=== PATIENT | male | born 1970 | race Caucasian/White ===

== ENCOUNTER 2016-12-19 21:29 | Inpatient (IN) | payer MEDICAID, OTHER ==
[~2016-12-19] VITALS: Ht 193 cm; Wt 88.0 kg
[2016-12-19] MEDS ORDERED: FINA5TAB41 PO (22:09)
[2016-12-19] MEDS ORDERED: ESTR2TAB PO (22:09)
[2016-12-19] MEDS ORDERED: CITA20TA9 PO (22:09)
[2016-12-19] MEDS ORDERED: ACYC200C PO (22:09)
[2016-12-19] MEDS ORDERED: TRAZ-147 PO (22:09)
[2016-12-19] MEDS ORDERED: SPIR50 PO (22:09)
[2016-12-19] MEDS ORDERED: LORazepam 2 MG TABLET PO PRN ×2 (23:00→23:45)
[2016-12-19] MEDS ORDERED: HALOPERIDOL 5 MG TABLET PO PRN ×2 (23:00→23:45)
[2016-12-19] MEDS ORDERED: ZOLPIDEM TARTRATE 10 MG TABLET PO PRN ×2 (23:00→23:45)
[2016-12-19] MEDS ORDERED: MEDR5TAB PO (23:19)
[2016-12-19] MEDS ORDERED: MELA10TA3 PO (23:19)
[2016-12-19] MEDS ORDERED: CALC-51 PO (23:19)
[2016-12-20 09:30] VITALS: BP 118/78
[2016-12-20] MEDS ORDERED: CITALOPRAM HYDROBROMIDE 20 MG TABLET PO ONE (12:45)
[2016-12-20 18:00] VITALS: BP 115/76
[2016-12-20] MEDS: TraZODone HCL 100 MG TABLET PO SCH (20:20)
[2016-12-21] MEDS ORDERED: MAGNESIUM HYDROXIDE SUSPENSION 30 ML UDCUP PO PRN (08:30)
[2016-12-21] MEDS ORDERED: IBUPROFEN 600 MG TABLET PO PRN (08:30)
[2016-12-21] MEDS ORDERED: ONDANSETRON HCL 4 MG TABLET PO PRN (08:30)
[2016-12-21] MEDS ORDERED: ALBUTEROL SULFATE HFA 90 MCG/PUFF 8 GM INHALER IH PRN (08:30)
[2016-12-21] MEDS ORDERED: CloNIDine HCL 0.1 MG TABLET PO PRN (08:30)
[2016-12-21] MEDS ORDERED: BACITRACIN 28.4 GM OINTMENT TP PRN (08:30)
[2016-12-21] MEDS ORDERED: PETROLATUM,WHITE 71 GM JELLY TP PRN (08:30)
[2016-12-21] MEDS ORDERED: LOPERAMIDE HCL 2 MG CAPSULE PO PRN (08:30)
[2016-12-21] MEDS ORDERED: MAG HYDROX/AL HYDROX/SIMETH ES 30 ML SUSPENSION UDCUP PO PRN (08:30)
[2016-12-21] MEDS ORDERED: ACETAMINOPHEN 325 MG TABLET PO PRN (08:30)
[2016-12-21] MEDS ORDERED: BENZOCAINE/MENTHOL LOZENGE [8 LOZENGES/PACKET] MM PRN (08:30)
[2016-12-21] MEDS: SPIRONOLACTONE 50 MG TABLET PO SCH ×2 (09:00→09:38)
[2016-12-21] MEDS: ESTRADIOL 1 MG TABLET PO SCH (09:36)
[2016-12-21] MEDS: MedroxyPROGESTERone ACET 5 MG TABLET PO SCH (09:36)
[2016-12-21] MEDS: ACYCLOVIR 200 MG CAPSULE PO SCH ×2 (09:38→19:09)
[2016-12-21] MEDS: FINASTERIDE 5 MG TABLET PO SCH (09:39)
[2016-12-21] MEDS: CITALOPRAM HYDROBROMIDE 20 MG TABLET PO SCH (09:39)
[2016-12-21 12:47] VITALS: BP 109/85
[2016-12-21 20:04] VITALS: BP 119/71
[2016-12-21] MEDS: MELATONIN 3 MG TABLET PO SCH (20:47)
[2016-12-21] MEDS: TraZODone HCL 100 MG TABLET PO SCH (20:47)
[2016-12-21] MEDS: CALCIUM CARBONATE 500 MG CHEWABLE TABLET CHEW SCH (20:48)
[2016-12-22] MEDS: CITALOPRAM HYDROBROMIDE 20 MG TABLET PO SCH (08:10)
[2016-12-22] MEDS: ACYCLOVIR 200 MG CAPSULE PO SCH ×2 (08:11→16:16)
[2016-12-22] MEDS: SPIRONOLACTONE 50 MG TABLET PO SCH (08:13)
[2016-12-22] MEDS: ESTRADIOL 1 MG TABLET PO SCH (08:14)
[2016-12-22 08:15] VITALS: BP 119/78
[2016-12-22] MEDS: MedroxyPROGESTERone ACET 5 MG TABLET PO SCH (08:15)
[2016-12-22] MEDS: FINASTERIDE 5 MG TABLET PO SCH (08:16)
[2016-12-22 16:15] VITALS: BP 124/75
[2016-12-22] MEDS: MELATONIN 3 MG TABLET PO SCH (20:23)
[2016-12-22] MEDS: TraZODone HCL 100 MG TABLET PO SCH (20:24)
[2016-12-22] MEDS: CALCIUM CARBONATE 500 MG CHEWABLE TABLET CHEW SCH (20:25)
[2016-12-22] MEDS: DICLOFENAC SODIUM 1% 100 GM GEL [2GM] TP SCH (20:34)
[2016-12-23] MEDS: SPIRONOLACTONE 50 MG TABLET PO SCH (08:34)
[2016-12-23] MEDS: ESTRADIOL 1 MG TABLET PO SCH (08:34)
[2016-12-23] MEDS: MedroxyPROGESTERone ACET 5 MG TABLET PO SCH (08:34)
[2016-12-23] MEDS: ACYCLOVIR 200 MG CAPSULE PO SCH ×2 (08:34→16:02)
[2016-12-23] MEDS: FINASTERIDE 5 MG TABLET PO SCH (08:34)
[2016-12-23] MEDS: CITALOPRAM HYDROBROMIDE 20 MG TABLET PO SCH (08:35)
[2016-12-23] MEDS: DICLOFENAC SODIUM 1% 100 GM GEL [2GM] TP SCH ×2 (08:37→16:03)
[2016-12-23 08:38] VITALS: BP 118/75
[2016-12-23 09:29] LABS: HEMATOCRIT 40.8 % (41-53); HEMOGLOBIN 14.4 g/dL (13.5-17.5); MEAN CORPUSCULAR HEMOGLOBIN 31.3 pg (26.0-34.0); MEAN CORPUSCULAR HGB CONC 35.3 G/dL (31.0-37.0); MEAN CORPUSCULAR VOLUME 89 fL (80-100); PLATELET COUNT (AUTO) 251 K/uL (150-450); RED BLOOD CELL COUNT(AUTO) 4.59 MIL/uL (4.50-5.90); RED CELL DISTRIBUTION WIDTH 13.1 % (11.5-14.5); WHITE BLOOD COUNT (AUTO) 5.2 K/uL (4.5-11.0)
[2016-12-23 09:41] LABS: ANION GAP 8 mmol/L (8-16); CALCIUM, TOTAL 8.7 mg/dL (8.8-10.5); CARBON DIOXIDE 25 mmol/L (22-29); CHLORIDE 103 mmol/L (98-107); CREATININE 0.99 mg/dL (0.60-1.30); GLOMERULAR FILTR. RATE CALC > 60 mL/min (>60); PHOSPHORUS 2.5 mg/dL (2.5-4.9); POTASSIUM 4.3 mmol/L (3.5-5.1); SODIUM SERUM 136 mmol/L (136-145); UREA NITROGEN, BLOOD 12 mg/dL (7-18)
[2016-12-23 10:37] LABS: BAND NEUTROPHILS % (MANUAL) 3 % (1-5); EOSINOPHILS % (MANUAL) 1 % (1-6); LYMPHOCYTES % (MANUAL) 28 % (22-44); RBC MORPHOLOGY COMMENT NORMAL RBC MORPH; TOTAL CELLS COUNTED 100
[2016-12-23 16:30] VITALS: BP 134/83
[2016-12-23] MEDS: TraZODone HCL 100 MG TABLET PO SCH (20:22)
[2016-12-23] MEDS: CALCIUM CARBONATE 500 MG CHEWABLE TABLET CHEW SCH (20:23)
[2016-12-23] MEDS: MELATONIN 3 MG TABLET PO SCH (20:23)
[2016-12-24 08:30] VITALS: BP 118/58
[2016-12-24] MEDS: ESTRADIOL 1 MG TABLET PO SCH (08:54)
[2016-12-24] MEDS: CITALOPRAM HYDROBROMIDE 20 MG TABLET PO SCH (08:54)
[2016-12-24] MEDS: MedroxyPROGESTERone ACET 5 MG TABLET PO SCH (08:54)
[2016-12-24] MEDS: FINASTERIDE 5 MG TABLET PO SCH (08:54)
[2016-12-24] MEDS: SPIRONOLACTONE 50 MG TABLET PO SCH (08:54)
[2016-12-24] MEDS: ACYCLOVIR 200 MG CAPSULE PO SCH ×2 (08:55→16:49)
[2016-12-24] MEDS: DICLOFENAC SODIUM 1% 100 GM GEL [2GM] TP SCH ×2 (08:57→16:49)
[2016-12-24 09:02] LABS: CHOL/HDL RATIO 3.1 (4.2-7.3); THYROID STIMULATING HORMONE 0.3 uIU/mL (0.36-3.74)
[2016-12-24 19:17] VITALS: BP 143/85
[2016-12-24] MEDS: MELATONIN 3 MG TABLET PO SCH (20:18)
[2016-12-24] MEDS: CALCIUM CARBONATE 500 MG CHEWABLE TABLET CHEW SCH (20:19)
[2016-12-24] MEDS: TraZODone HCL 100 MG TABLET PO SCH (20:19)
[2016-12-25] MEDS: DICLOFENAC SODIUM 1% 100 GM GEL [2GM] TP SCH (09:00)
[2016-12-25] MEDS: CITALOPRAM HYDROBROMIDE 20 MG TABLET PO SCH (09:01)
[2016-12-25] MEDS: SPIRONOLACTONE 50 MG TABLET PO SCH (09:02)
[2016-12-25] MEDS: MedroxyPROGESTERone ACET 5 MG TABLET PO SCH (09:03)
[2016-12-25] MEDS: ESTRADIOL 1 MG TABLET PO SCH (09:03)
[2016-12-25] MEDS: ACYCLOVIR 200 MG CAPSULE PO SCH (09:03)
[2016-12-25] MEDS: FINASTERIDE 5 MG TABLET PO SCH (09:04)
[2016-12-25 10:48] VITALS: BP 109/76
[2016-12-25] MEDS ORDERED: DICL2100G TP (14:15)
== END 2016-12-25 15:19 | disposition home or self-care (01) | DRG 751 ==
LOC: EMS 21:30 → AHU 12-20 08:58 → 3EI 12-20 17:18
DX: F33.2 Major depressive disorder, recurrent severe without psychotic features (principal); R45.851 Suicidal ideations; R45.850 Homicidal ideations; G47.00 Insomnia, unspecified; M54.5 Low back pain; Z91.14 Patient's other noncompliance with medication regimen
CPT/HCPCS: 82306; 83735; 84100; 84443; 85007; 99285